=== PATIENT | female | born 1970 | race Caucasian/White ===

== ENCOUNTER 2016-09-26 12:48 | Day surgery (SDC) | payer OTHER ==
[~2016-09-26] VITALS: Ht 170.2 cm; Wt 95.6 kg
[2016-09-26] VITALS (18 sets, daily range): BP systolic 118–148; BP diastolic 57–78; PULSE 83–101; RESP 16–23; Ht 170.2 cm; Wt 95.6 kg
[~2016-09-26 12:48] MED LIST: CLINDAMYCIN 900 MG/50 ML D5W IVPB IVPB ONE; SUCCINYLCHOLINE CHLORIDE 100 MG/5 ML SYG IV ONE
[2016-09-26] MEDS ORDERED: CEFAZOLIN 1 GM/50 ML (PMX) 50 ML IVPB SCH (13:30)
--- NOTE | 2016-09-26 15:15 | HPN ---
Date/Time of Note Date/Time of Note DATE: 09/26/16 TIME: 15:15 Interval H&P Admission Note Pt. seen H&P reviewed: No system changes DAJA MEDELLIN MD Sep 26, 2016 15:15
[2016-09-26] MEDS ORDERED: COCAINE 4% 4 ML TOP ONE (16:28)
[2016-09-26] MEDS ORDERED: LIDOCAINE 2%/EPI (MDV) 20ML INJ INJ ONE (16:28)
--- NOTE | 2016-09-26 16:57 | OPR ---
Date/Time of Note Date/Time of Note DATE: 09/26/16 TIME: 16:52 Operative Report Procedure Date: Sep 26, 2016 Preoperative Diagnosis Obstructive sleep apnea syndrome, deviated nasal septum, inferior turbinate hypertrophy Postoperative Diagnosis Same Operation Performed Septoplasty, submucous resection of inferior turbinates, uvulopalatopharyngoplasty Surgeon: DAJA MEDELLIN MD Anesthesia: general Estimated Blood Loss: 10 - 50 ml's Complications: None Pt Condition Post Procedure: stable Disposition: PACU Indications Obstructive sleep apnea, unable to tolerate CPAP Operative\Procedure Findings Symmetric hypertrophy Procedure Description Description of procedure: The patient was identified in the holding area. We had a discussion to confirm understanding of all indications risks benefits alternatives and postoperative care associated with the operation. The patient signed informed consent was taken to the operating room. The patient was laid supine on the operating room table and general anesthesia was achieved without difficulty. The face was draped in sterile fashion and the nose was packed with 4% cocaine pledgets. The nasal septum was infiltrated with 5 cc of 1% lidocaine with epinephrine in the submucoperiosteal plane bilaterally. A left sided posterior Diogo incision was made and submucoperichondreal flaps were raised. The bony cartilaginous junction of the septum was identified and entered. A deviated segments of bone and cartilage were isolated. Inferior spur off maxillary crest was transected and relocated to midline. Care was taken to avoid excess cartilaginous resection. The flaps were returned to normal position and anterior rhinoscopy reveals midline septum. At this point the right inferior turbinate was medialized with a Sidney elevator. The Coblation wand on a setting of 6 was used to enter the turbinate in the inferior medial submucosal compartment. 10 seconds of Coblation were performed at the 3rd 2nd and 1st vallejo after which the turbinate was crushed laterally into the lateral nasal wall with a Dominguez elevator. The contralateral turbinate was addressed in similar fashion to complete the bilateral submucous resection and lateral fracturing of the inferior turbinates. The eyes and face were taped and drape for protection. A McIvor mouth gag was placed into the mouth and fully engaged. There was full visualization of the oral cavity and oropharynx. The tonsil and soft palate were assessed for size and length respectively. Incisions for uvulopalatopharyngoplasty were planned to allow adequate length after resection to avoid postoperative velopharyngeal insufficiency. The left palatine tonsil was grasped inferiorly and tonsillectomy was performed in inferior to superior fashion until the uvula was reached. The anterior and posterior tonsillar pillars were spared. The tonsillectomy specimen was kept in continuity with the uvula as uvulectomy and soft palate resection was performed and the incision extended to the contralateral side when the contralateral tonsil was resected in a superior to inferior fashion. At this point, inspection for bleeding and oozing revealed no significant areas of concern. Interrupted 3-0 Vicryl was used to approximate the palatopharyngoplasty defect. Post reconstruction evaluation of the soft palate revealed adequate length to reach the posterior pharyngeal wall. At this point, the McIvor mouth gag was removed. Video pharyngoscopy and laryngoscopy was performed of the tongue base and vallecula. The [employer]throCare Coblation wand on a setting of 6 was used to liquefy lingual tonsil tissue and resect his tissue in a superficial to deep fashion. Care was taken to avoid entering the muscle. The epiglottis was left intact. This resulted in a significant increase in oropharyngeal airway. Repeat inspection was performed to insure hemostasis. The wound was irrigated with copious amounts of saline. All instrument were removed and counted correctly. The patient was awakened and taken to the PACU in stable condition. Complications: None DAJA MEDELLIN MD Sep 26, 2016 16:57
[2016-09-26] MEDS ORDERED: OXYMETAZOLINE 0.05% 15 ML NAS SPRAY NASAL ONE (17:02)
[2016-09-26] MEDS: HYDROCODONE/APAP (5/325) TAB PO PRN ×2 (17:16→18:08)
[2016-09-26] MEDS: HYDROmorphONE (0.2 MG/ML) 10ML SYG IV PRN ×3 (17:24→18:04)
[2016-09-26] MEDS ORDERED: PROCHLORPERAZINE 10 MG INJ IV PRN (17:30)
[2016-09-26] MEDS ORDERED: DIPHENHYDRAMINE 50 MG INJ IV PRN (17:30)
[2016-09-26] MEDS ORDERED: ONDANSETRON 4 MG INJ IV PRN ×2 (17:30→19:30)
[2016-09-26] MEDS ORDERED: MEPERIDINE 25 MG INJ IV PRN (17:30)
[2016-09-26] MEDS ORDERED: HYDROmorphONE (0.2 MG/ML) 10ML SYG IV PRN (17:30)
[2016-09-26] MEDS: morphine 4 MG/ML VIAL IV PRN (19:52)
[2016-09-27] MEDS: HYDROCODONE/APAP (5/325) TAB PO PRN ×3 (00:02→10:50)
[2016-09-27 06:00] VITALS: BP 117/56; PULSE 75; RESP 18
[2016-09-27 07:45] VITALS: BP 117/56; RESP 18
[2016-09-27] MEDS: morphine 4 MG/ML VIAL IV PRN (11:53)
[2016-09-27] MEDS ORDERED: MIDAZOLAM 1 MG/ML 2 ML INJ ONE (18:02)
[2016-09-27] MEDS ORDERED: FENTAnyl 50 MCG/ML VIAL ONE (18:02)
[2016-09-27] MEDS ORDERED: DEXAMETHASONE 4 MG/ML 1 ML INJ ONE (18:02)
[2016-09-27] MEDS ORDERED: ONDANSETRON 4 MG INJ ONE (18:02)
[2016-09-27] MEDS ORDERED: OXYMETAZOLINE 0.05% 15 ML NAS SPRAY NASAL ONE (18:02)
[2016-09-27] MEDS ORDERED: LIDOCAINE 1% (MDV) 20 ML INJ ONE (18:02)
[2016-09-27] MEDS ORDERED: COCAINE 4% 4 ML TOP ONE (18:02)
[2016-09-27] MEDS ORDERED: PROPOFOL 20 ML ONE (18:02)
[2016-09-27] MEDS ORDERED: FAMOTIDINE 20 MG INJ ONE (18:02)
[2016-09-27] MEDS ORDERED: BACITRACIN/POLYMYXIN 28.35 GM OINT TOP ONE (18:02)
[2016-09-27] MEDS ORDERED: LIDOCAINE 2%/EPI 30 ML INJ ONE (18:02)
--- NOTE | 2016-10-11 11:12 | DS ---
Date/Time of Note Date/Time of Note DATE: 10/11/16 TIME: 11:11 Discharge Summary Admission/Discharge Info Admit Date/Time 09/27/11 Discharge Date/Time 09/27/16 Discharge Diagnosis [facility] post op Patient Condition: Good Hospital Course UPPP on DOA. Did well. Stable for DC POD 1. Home Meds No Active Prescriptions or Reported Meds Follow-up Plan [facility]. Primary Care Provider Not On Staff Doctor Time spent on discharge: < 30 minutes DAJA MEDELLIN MD Oct 11, 2016 11:12
== END 2016-09-27 14:17 | disposition home or self-care (01) ==
LOC: SDS 12:48 → MS1 16:48 → SDS 16:48 → MS1 18:30 → UNDOADMIN 18:30 → MS1 18:30 → SDS 09-27 14:17 → UNDODISIN 09-27 14:17
PROVIDERS: ATTEND Otolaryngology
DX: J34.2 Deviated nasal septum (principal); J34.3 Hypertrophy of nasal turbinates; G47.33 Obstructive sleep apnea (adult) (pediatric)
CPT/HCPCS: 30140; 30520; 42145; 88305; J1100; J1170; J2250; J2270; J2405; J3010; J7999; Z7512; Z7610